=== PATIENT | female | born 1980 | race Caucasian/White ===

== ENCOUNTER 2016-06-20 15:46 | Emergency (ER) | payer BC ==
[2016-06-20 16:18] VITALS: BP 117/70
--- NOTE | 2016-06-20 21:21 | UC ---
Skin Complaint HPI - HPI Summary HPI Summary: Awoke with an itching sore red area on right cheek - History of Current Complaint Chief Complaint: UCSkin Time Seen by Provider: 06/20/16 16:43 Stated Complaint: RASH/BLISTERS FACE Hx Obtained From: Patient Hx Last Menstrual Period: 05/31/16 ?: No Onset/Duration: Sudden Onset, Lasting Days - 1, Still Present Skin Exposure Onset/Duration: Hours Ago - awake with it Timing: Constant Onset Severity: Mild Current Severity: Mild Pain Intensity: 4 Pain Scale Used: 0-10 Numeric Location: Discrete - right cheek Character: Pain, Redness Aggravating: Nothing Alleviating: Cold Associated Signs & Symptoms: Positive: Drainage - had 2 small blisters that had clear drainage,, site is very itchy, Tenderness Related History: Insect Bite/Sting - Allergy/Home Medications Allergies/Adverse Reactions: Allergies Allergy/AdvReac Type Severity Reaction Status Date / Time Benzodiazepines AdvReac See Comment Verified 06/20/16 16:18 Fentanyl AdvReac See Comment Verified 06/20/16 16:18 NSAIDs AdvReac See Comment Verified 06/20/16 16:18 Succinylcholine AdvReac See Comment Verified 06/20/16 16:18 OPIATES AdvReac See Comment Uncoded 06/20/16 16:18 Home Medications: Home Medications Levothyroxine TAB* [Synthroid 25 MCG TAB*] 25 mcg PO 0800 06/20/16 [History Confirmed 06/20/16] Modafinil TAB* [Provigil TAB*] 100 mg PO DAILY 06/20/16 [History Confirmed 06/20] Multiple Vitamin [Multi Vitamin] 1 tab PO DAILY 06/20/16 [History Confirmed ] Penicillin VK TAB* [Penicillin VK 250 mg Tab*] 500 mg PO BID 06/20/16 [History Confirmed 06/20/16] Review of Systems Constitutional: Negative Skin: Negative - cheek 1 inch in diameter, Rash Eyes: Negative ENT: Negative Respiratory: Negative Cardiovascular: Negative Gastrointestinal: Negative Genitourinary: Negative Motor: Negative Neurovascular: Negative Musculoskeletal: Negative Neurological: Negative Psychological: Negative All Other Systems Reviewed And Are Negative: Yes PMH/Surg Hx/FS Hx/Imm Hx Previously Healthy: Yes - Surgical History Surgical History: Yes Surgery Procedure, Year, and Place: EAR TUBES. C-SECT 2009. CHOLECYSTECTOMY- 2010. GASTRIC BYPASS--2016 - Family History Known Family History: Positive: Cardiac Disease, Respiratory Disease, Other - MYOTONIC MUSCULAR DYSTROPHY FATHER, SELF, SON Negative: Hypertension, Diabetes - Social History Occupation: Employed Full-time Lives: With Family Alcohol Use: None Substance Use Type: None Smoking Status (MU): Never Smoked Tobacco Physical Exam Triage Information Reviewed: Yes Appearance: Well-Appearing, No Pain Distress, Well-Nourished Vital Signs: Initial Vital Signs Temp 97.5 F 06/20/16 16:10 Pulse 67 06/20/16 16:10 Resp 16 06/20/16 16:10 BP 117/70 06/20/16 16:10 Pulse Ox 100 06/20/16 16:10 Vital Signs Reviewed: Yes Eye Exam: Normal Eyes: Positive: Conjunctiva Clear ENT Exam: Normal ENT: Positive: Normal ENT inspection, Hearing grossly normal, Pharynx normal, TMs normal. Negative: Nasal congestion, Nasal drainage, Tonsillar swelling, Tonsillar exudate, Trismus, Muffled/hoarse voice Dental Exam: Normal Neck exam: Normal Neck: Positive: Supple, Nontender Respiratory Exam: Normal Respiratory: Positive: Chest non-tender, Lungs clear, Normal breath sounds, No respiratory distress, No accessory muscle use Cardiovascular Exam: Normal Cardiovascular: Positive: RRR, No Murmur, Pulses Normal, Brisk Capillary Refill Musculoskeletal Exam: Normal Musculoskeletal: Positive: Strength Intact, ROM Intact, No Edema Neurological Exam: Normal Neurological: Positive: Alert, Muscle Tone Normal Psychological Exam: Normal Skin: Positive: rashes - left cheek 1 inch diameter Diagnostics - Laboratory Diagnostic Studies Completed/Ordered: will obtain bacteral and viral swabs ( pt is concerned about MRSA and or SHingles) Course/Dx - Course Course Of Treatment: mild soap and water wash, ice, bactroban, benadryl, follow with pcp - Differential Diagnoses - Skin Complaint Differential Diagnoses: Allergic Reaction, Cellulitis, Contact Dermatitis, Impetigo, Local Allergic Reaction, Urticaria - Diagnoses Provider Diagnoses: rash left cheek, most likely local reaction to insect bite Discharge - Discharge Plan Condition: Stable Disposition: HOME Prescriptions: Mupirocin 2% CREAM* [Bactroban 2% CREAM*] 1 applic TOPICAL TID #1 tube Patient Education Materials: Diphenhydramine (By mouth), MRSA (Methicillin- Resistant Staphylococcus Aureus) (ED), Insect Bite or Sting (ED) Referrals: Lola Jacome MD [Primary Care Provider] - 3 Days Additional Instructions: We will have the results back for MsRA or Shingles in 2-3 days. If area on cheek worsens in any way until then return for re check, Use antibiotic ointment three times a day and Benadryl for itching
[2016-06-24 01:11] LABS: HS/VZ Source RIGHT CHEEK; Varicella Zoster Result Negative (Negative); Varicella Zoster Source RIGHT CHEEK
== END 2016-06-20 17:06 | disposition home or self-care (01) ==
LOC: UCCORT 15:46
DX: R21 Rash and other nonspecific skin eruption (principal); Z88.6 Allergy status to analgesic agent; Z88.5 Allergy status to narcotic agent; Z90.49 Acquired absence of other specified parts of digestive tract; Z98.84 Bariatric surgery status
CPT/HCPCS: 87070; 87077; 87205; 87529; 87798; 99212; G0463

== ENCOUNTER 2016-07-28 11:12 | Emergency (ER) | payer BC ==
[2016-07-28 11:40] VITALS: BP 117/76
[2016-07-28] MEDS ORDERED: Acetaminophen TAB* 325 MG PO ONE (12:25)
--- NOTE | 2016-07-28 12:29 | UC ---
Lower Extremity/Ankle HPI - HPI Summary HPI Summary: 35 yo female about on hour s/p injury to right 2nd toe able to bear wt with limp - History of Current Complaint Chief Complaint: UCLowerExtremity Stated Complaint: RIGHT FOOT,2ND TOE INJURY Time Seen by Provider: 07/28/16 12:22 Hx Obtained From: Patient Hx Last Menstrual Period: WEEK OF 07/14/16 Onset/Duration: Sudden Onset, Lasting Hours Severity Initially: Moderate Severity Currently: Moderate Pain Intensity: 6 Pain Scale Used: 0-10 Numeric Aggravating Factor(s): Standing, Ambulation Alleviating Factor(s): Rest, Elevation Able to Bear Weight: Yes - Allergies/Home Medications Allergies/Adverse Reactions: Allergies Allergy/AdvReac Type Severity Reaction Status Date / Time Benzodiazepines AdvReac See Comment Verified 07/28/16 11:40 Fentanyl AdvReac See Comment Verified 07/28/16 11:40 NSAIDs AdvReac See Comment Verified 07/28/16 11:40 Succinylcholine AdvReac See Comment Verified 07/28/16 11:40 OPIATES AdvReac See Comment Uncoded 07/28/16 11:40 PMH/Surg Hx/FS Hx/Imm Hx Previously Healthy: Yes - Surgical History Surgical History: Yes Surgery Procedure, Year, and Place: EAR TUBES. C-SECT 2009. CHOLECYSTECTOMY- 2010. GASTRIC BYPASS--2016 - Family History Known Family History: Positive: Cardiac Disease, Respiratory Disease, Other - MYOTONIC MUSCULAR DYSTROPHY FATHER, SELF, SON Negative: Hypertension, Diabetes - Social History Alcohol Use: Rare Substance Use Type: None Smoking Status (MU): Never Smoked Tobacco Review of Systems Constitutional: Negative Skin: Negative Eyes: Negative ENT: Negative Respiratory: Negative Cardiovascular: Negative Gastrointestinal: Negative Genitourinary: Negative Motor: Negative Neurovascular: Negative Musculoskeletal: Arthralgia Neurological: Negative Psychological: Negative All Other Systems Reviewed And Are Negative: Yes Physical Exam Triage Information Reviewed: Yes Appearance: Well-Appearing, No Pain Distress, Well-Nourished Vital Signs: Initial Vital Signs Temp 98.3 F 07/28/16 11:34 Pulse 72 07/28/16 11:34 Resp 12 07/28/16 11:34 BP 117/76 07/28/16 11:34 Pulse Ox 98 07/28/16 11:34 Eyes: Positive: Conjunctiva Clear ENT: Positive: Hearing grossly normal. Negative: Nasal congestion, Nasal drainage, Trismus, Muffled/hoarse voice Neck: Positive: Nontender, No Lymphadenopathy Respiratory: Positive: Lungs clear, Normal breath sounds, No respiratory distress Cardiovascular: Positive: RRR, No Murmur Musculoskeletal Exam: Other - see image Neurological: Positive: Alert, Muscle Tone Normal Psychological Exam: Normal Skin Exam: Normal Lower Extremity Course/Dx - Course Course Of Treatment: ashley taped by me - Differential Dx/Diagnosis Provider Diagnoses: close fracture of proximal phanlanx of right second toe ( minimally displaced) Discharge - Discharge Plan Condition: Stable Disposition: HOME Patient Education Materials: Toe Fracture (ED) Referrals: Vikash Kerns MD [Medical Doctor] - 3 Days (call and make an appt to be seen) Lola Jacome MD [Primary Care Provider] - Additional Instructions: ashley tape rest elevate ice tylenol post op shoe Images Feet (Multiple View): 1 - tender/deformed
--- NOTE | 2016-07-28 12:45 | RAD ---
INDICATION: Right second toe injury COMPARISON: None TECHNIQUE: AP, lateral, and oblique views were obtained. FINDINGS: There is a minimally distracted oblique fracture through the proximal phalanx of the second toe. There are no other fractures. There is associated soft tissue swelling. IMPRESSION: FRACTURE SECOND TOE.
== END 2016-07-28 13:12 | disposition home or self-care (01) ==
LOC: UCCORT 11:12
DX: S92.911A Unspecified fracture of right toe(s), initial encounter for closed fracture (principal); Z88.5 Allergy status to narcotic agent; X58.XXXA Exposure to other specified factors, initial encounter
CPT/HCPCS: 99213; A9270-GY; G0463

== ENCOUNTER 2017-04-11 09:10 | Emergency (ER) | payer BC, OTHER ==
[2017-04-11 10:38] VITALS: BP 104/58
--- NOTE | 2017-04-11 11:07 | UC ---
Throat Pain/Nasal Ernie HPI - HPI Summary HPI Summary: Per superintendent maintenance "pt states she has a hx of strep throat. pt states that she has white patches to throat and it is beginning to have painful swallowing. " She is here w/ her son, 7. -she has had strep many times in past 1.5 yrs and follows w/ Dr Stoddard. He tyold her she would need a tonsillectomy if 1 more strep by May. Feels c/w strep. otherwise feels fine. no fevers/chills or body aches. - History of Current Complaint Chief Complaint: UCRespiratory Stated Complaint: SORE THROAT Time Seen by Provider: 04/11/17 10:40 Hx Last Menstrual Period: WEEK OF 07/14/16 Pain Intensity: 4 - Allergies/Home Medications Allergies/Adverse Reactions: Allergies Allergy/AdvReac Type Severity Reaction Status Date / Time MS Benzodiazepines AdvReac See Comment Verified 04/11/17 10:38 [Benzodiazepines] MS Fentanyl [Fentanyl] AdvReac See Comment Verified 04/11/17 10:38 MS NSAIDs [NSAIDs] AdvReac See Comment Verified 04/11/17 10:38 MS Succinylcholine AdvReac See Comment Verified 04/11/17 10:38 [Succinylcholine] OPIATES AdvReac See Comment Uncoded 04/11/17 10:38 PMH/Surg Hx/FS Hx/Imm Hx Previously Healthy: Yes - muscular dystrophy Endocrine History: Thyroid Disease - Surgical History Surgical History: Yes Surgery Procedure, Year, and Place: EAR TUBES. C-SECT 2009. CHOLECYSTECTOMY- 2010. GASTRIC BYPASS--2016 - Family History Known Family History: Positive: Cardiac Disease, Respiratory Disease, Other - MYOTONIC MUSCULAR DYSTROPHY FATHER, SELF, SON Negative: Hypertension, Diabetes - Social History Alcohol Use: Rare Substance Use Type: None Smoking Status (MU): Never Smoked Tobacco Review of Systems Constitutional: Fatigue Skin: Negative Eyes: Negative ENT: Sore Throat Respiratory: Negative Cardiovascular: Negative Gastrointestinal: Negative Genitourinary: Negative Motor: Negative Neurovascular: Negative Musculoskeletal: Negative Neurological: Negative Psychological: Negative Is Patient Immunocompromised?: No All Other Systems Reviewed And Are Negative: Yes Physical Exam Triage Information Reviewed: Yes Appearance: Well-Appearing, No Pain Distress, Well-Nourished - very pleasant Vital Signs: Initial Vital Signs Temp 97.8 F 04/11/17 10:33 Pulse 73 04/11/17 10:33 Resp 18 04/11/17 10:33 BP 104/58 04/11/17 10:33 Pulse Ox 99 04/11/17 10:33 Vital Signs Reviewed: Yes Eye Exam: Normal ENT: Positive: Hearing grossly normal, Pharyngeal erythema, TMs normal, Tonsillar exudate, Sinus tenderness. Negative: Nasal drainage, Hoarse voice Dental Exam: Normal Neck exam: Normal Neck: Positive: Supple, Nontender, No Lymphadenopathy Respiratory: Positive: Lungs clear, Normal breath sounds, No respiratory distress, No accessory muscle use Cardiovascular Exam: Normal Cardiovascular: Positive: RRR, No Murmur, Pulses Normal Abdomen Description: Positive: Nontender, Soft Musculoskeletal Exam: Normal Neurological Exam: Normal Psychological Exam: Normal Skin Exam: Normal Throat Pain/Nasal Course/Dx - Course Course Of Treatment: + rapid strep - Differential Dx/Diagnosis Differential Diagnosis/HQI/PQRI: Peritonsillar Abscess, Pharyngitis, Tonsillitis Provider Diagnoses: sterp pharyngitis Discharge - Discharge Plan Condition: Stable Disposition: HOME Prescriptions: Amoxicillin PO (*) [Amoxicillin 875 MG (*)] 875 mg PO BID #20 tab Patient Education Materials: Strep Throat (ED) Referrals: Lola Jacome MD [Primary Care Provider] - Additional Instructions: -Make sure to take a probiotic daily while on antibiotics to help prevent a potential complication of antibiotic use called c diff. Some well known brands that can be found OTC are florastor, align and [employer] health. Make sure to complete the entire prescription unless advised otherwise by your health care provider. -Follow up with Dr Stoddard this week as you have discussed possible tonsillectomy due to frequent strep infections.
== END 2017-04-11 11:22 | disposition home or self-care (01) ==
LOC: UCCORT 09:10
DX: J02.0 Streptococcal pharyngitis (principal); G71.0 Muscular dystrophy
CPT/HCPCS: 87651; 99212; G0463

== ENCOUNTER 2017-09-09 16:57 | Emergency (ER) | payer OTHER ==
[2017-09-09 17:29] VITALS: BP 120/77
--- NOTE | 2017-09-09 17:54 | ED ---
Skin Complaint - History of Current Complaint Chief Complaint: Oral Stated Complaint: FACIAL SKIN CONCERN Hx Obtained From: Patient Hx Last Menstrual Period: 08/23/17 Onset/Duration: Started Days Ago Timing: Intermittent Pain Intensity: 0 Skin Location: Face, Nose Character: Pruritus, Redness Aggravating Symptom(s): Nothing Alleviating Symptom(s): Nothing Associated Signs & Symptoms: Negative - Allergy/Home Medications Allergies/Adverse Reactions: Allergies Allergy/AdvReac Type Severity Reaction Status Date / Time NSAIDS (Non-Steroidal Allergy Unknown d/t Verified 09/09/17 17:31 Anti-Inflamma gastric bypass succinylcholine Allergy Unknown myotonic Verified 09/09/17 17:31 muscular dystrophy Benzodiazepines AdvReac myotonic Verified 09/09/17 17:31 muscular dystrophy fentanyl AdvReac myotonic Verified 09/09/17 17:31 muscular dystrophy OPIATES AdvReac See Comment Uncoded 09/09/17 17:31 PMH/Surg Hx/FS Hx/Imm Hx Endocrine/Hematology History: Reports: Hx Thyroid Disease - hypo Musculoskeletal History: Reports: Other Musculoskeletal History - hx. of muscular dystrophy - Cancer History Hx Chemotherapy: No Hx Radiation Therapy: No Hx Palliative Cancer Treatment: No - Surgical History Surgery Procedure, Year, and Place: EAR TUBES. C-SECT 2009. CHOLECYSTECTOMY- 2010. GASTRIC BYPASS--2016 Infectious Disease History: No Infectious Disease History: Denies: Traveled Outside the [place] in Last 30 Days - Family History Known Family History: Positive: Cardiac Disease, Respiratory Disease, Other - MYOTONIC MUSCULAR DYSTROPHY FATHER, SELF, SON Negative: Hypertension, Diabetes - Social History Occupation: Employed Full-time Alcohol Use: Rare Substance Use Type: Reports: None Smoking Status (MU): Never Smoked Tobacco Review of Systems Constitutional: Negative Eyes: Negative ENT: Negative Cardiovascular: Negative Respiratory: Negative Gastrointestinal: Negative Musculoskeletal: Other - hx. of muscular dystrophy Skin: Other - recurrent rash right side of face, perinasal region Neurological: Negative Psychological: Normal All Other Systems Reviewed And Are Negative: Yes Physical Exam Vital Signs On Initial Exam: Initial Vitals Temp Pulse Resp BP Pulse Ox 36.9 C 67 16 120/77 100 09/09/17 17:24 09/09/17 17:24 09/09/17 17:24 09/09/17 17:24 09/09/17 17:24 Appearance: Positive: Well-Appearing Skin: Positive: Warm, Erythema @ - area of the right nostril and right malar region ENT: Positive: Normal ENT inspection Neck: Positive: Supple Respiratory/Lung Sounds: Positive: Clear to Auscultation Cardiovascular: Positive: Normal Abdomen Description: Positive: Nontender Musculoskeletal: Positive: Normal Diagnostics - Vital Signs Vital Signs Temp Pulse Resp BP Pulse Ox 09/09/17 17:24 36.9 C 67 16 120/77 100 - Laboratory Lab Statement: Any lab studies that have been ordered have been reviewed, and results considered in the medical decision making process. Course/Dx - Course Course Of Treatment: seborrheic dermatitis - Diagnoses Provider Diagnoses: Acute seborrheic dermatitis Discharge - Sign-Out/Discharge Documenting (check all that apply): Patient Departure - Discharge Plan Condition: Good Disposition: HOME Prescriptions: Hydrocortisone 2.5% CREAM(NF) 1 applic TOPICAL DAILY PRN #1 tube PRN Reason: Dry Skin Ketoconazole 2 % CREAM (NF) [Nizoral 2% CREAM (NF)] 1 applic TOPICAL DAILY #1 tube Patient Education Materials: Seborrheic Dermatitis (DC) Referrals: Zhane Phan MD [Primary Care Provider] - - Billing Disposition and Condition Condition: GOOD Disposition: Home
== END 2017-09-09 17:59 | disposition home or self-care (01) ==
LOC: UCCORT 16:57
DX: L21.9 Seborrheic dermatitis, unspecified (principal); E03.9 Hypothyroidism, unspecified; G71.0 Muscular dystrophy; Z90.49 Acquired absence of other specified parts of digestive tract; Z98.84 Bariatric surgery status; Z88.6 Allergy status to analgesic agent; Z88.5 Allergy status to narcotic agent; Z88.8 Allergy status to other drugs, medicaments and biological substances; Z82.49 Family history of ischemic heart disease and other diseases of the circulatory system; Z83.6 Family history of other diseases of the respiratory system; Z82.0 Family history of epilepsy and other diseases of the nervous system
CPT/HCPCS: 99212; G0463

== ENCOUNTER 2018-03-08 08:58 | Emergency (ER) | payer OTHER ==
[2018-03-08 10:07] VITALS: BP 107/72
--- NOTE | 2018-03-08 10:25 | UC ---
FLU HPI - HPI Summary HPI Summary: Onset yesterday of productive cough, chest congestion, body aches, fatigue and headache. Occasional SOB. Fever last night 101.4. No nausea/vomiting. Mother- in-law lives with the patient and was recently treated for pneumonia. Up to date flu shot. - History of Current Complaint Chief Complaint: UCRespiratory Stated Complaint: SOB,CONGESTION Time Seen by Provider: 03/08/18 10:06 Hx Obtained From: Patient Hx Last Menstrual Period: 02/10/18 Onset/Duration: Gradual Onset, Lasting Days, Still Present Severity Currently: Moderate Severity Initially: Moderate Pain Intensity: 4 Pain Scale Used: 0-10 Numeric Associated Signs & Symptoms: Positive: Fever, Myalgia, Cough, Nasal Congestion, Headache - Allergy/Home Medications Allergies/Adverse Reactions: Allergies Allergy/AdvReac Type Severity Reaction Status Date / Time NSAIDS (Non-Steroidal Allergy Unknown d/t Verified 03/08/18 09:59 Anti-Inflamma gastric bypass succinylcholine Allergy Unknown myotonic Verified 03/08/18 09:59 muscular dystrophy Benzodiazepines AdvReac myotonic Verified 03/08/18 09:59 muscular dystrophy fentanyl AdvReac myotonic Verified 03/08/18 09:59 muscular dystrophy OPIATES AdvReac See Comment Uncoded 03/08/18 09:59 PMH/Surg Hx/FS Hx/Imm Hx - Additional Past Medical History Additional PMH: MYOTONIC MUSCULAR DYSTROPHY TYPE I Endocrine History: Hypothyroidism - Surgical History Surgical History: Yes Surgery Procedure, Year, and Place: EAR TUBES. C-SECT 2009. CHOLECYSTECTOMY- 2010. GASTRIC BYPASS--2016 - Family History Known Family History: Positive: Cardiac Disease, Respiratory Disease, Other - MYOTONIC MUSCULAR DYSTROPHY FATHER, SELF, SON Negative: Hypertension, Diabetes - Social History Alcohol Use: Rare Substance Use Type: None Smoking Status (MU): Never Smoked Tobacco Review of Systems All Other Systems Reviewed And Are Negative: Yes Constitutional: Positive: Fever, Fatigue ENT: Positive: Nasal Discharge Respiratory: Positive: Shortness Of Breath, Cough Cardiovascular: Positive: Negative Gastrointestinal: Positive: Negative Musculoskeletal: Positive: Arthralgia, Myalgia Neurological: Positive: Headache Physical Exam Triage Information Reviewed: Yes Appearance: Well-Appearing, No Pain Distress, Well-Nourished Vital Signs: Initial Vital Signs Temp 98.3 F 03/08/18 10:00 Pulse 81 03/08/18 10:00 Resp 20 03/08/18 10:00 BP 107/72 03/08/18 10:00 Pulse Ox 100 03/08/18 10:00 Laboratory Tests 03/08/18 10:30 Influenza A (Rapid) Positive A Vital Signs Reviewed: Yes Eyes: Positive: Conjunctiva Clear ENT: Positive: Hearing grossly normal, Pharynx normal, TMs normal Neck: Positive: Supple, Nontender, No Lymphadenopathy Respiratory Exam: Normal Cardiovascular Exam: Normal Abdomen Description: Positive: Soft Musculoskeletal: Positive: No Edema Neurological: Positive: Alert Psychological: Positive: Age Appropriate Behavior Skin: Negative: Rashes Diagnostics - Radiology CXR Radiology Interpretation Completed By: Radiologist Summary of Radiographic Findings: UNREMARKABLE Flu Course/Dx - Differential Dx/Diagnosis Provider Diagnosis: Influenza A Discharge - Sign-Out/Discharge Documenting (check all that apply): Patient Departure All imaging exams completed and their final reports reviewed: Yes - Discharge Plan Condition: Stable Disposition: HOME Prescriptions: Oseltamivir CAP* [Tamiflu CAP*] 75 mg PO BID #10 cap Patient Education Materials: Influenza (ED) Forms: *Work Release Referrals: Zhane Phan MD [Primary Care Provider] - If Needed Additional Instructions: SWAB POSITIVE FOR INFLUENZA A. TAMIFLU TWICE DAILY FOR 5 DAYS. OTC MEDS NEEDED FOR FEVER, BODY ACHES. STAY WELL HYDRATED AND RESTED. SEEK FOLLOW-UP IF YOU ARE NOT IMPROVING EXPECTED. - Billing Disposition and Condition Condition: STABLE Disposition: Home
== END 2018-03-08 11:01 | disposition home or self-care (01) ==
LOC: UCCORT 08:58
DX: J09.X2 Influenza due to identified novel influenza A virus with other respiratory manifestations (principal); Z88.8 Allergy status to other drugs, medicaments and biological substances; Z88.5 Allergy status to narcotic agent; G71.11 Myotonic muscular dystrophy; Z88.6 Allergy status to analgesic agent
CPT/HCPCS: 71046; 99212; G0463